=== PATIENT | male | born 1960 | race Caucasian/White ===

== ENCOUNTER 2023-03-30 15:10 | Outpatient (OUT) | payer SELFPAY | END 2023-03-30 15:11 | disposition home or self-care (01) | LOC: PST 15:11 | PROVIDERS: Visit Provider Surgery | DX: Z01.818 Encounter for other preprocedural examination (principal); Z86.010 Personal history of colon polyps ==

== ENCOUNTER 2023-04-07 07:50 | Day surgery (SDC) | payer SELFPAY ==
--- NOTE | 2023-03-29 14:06 | PC.NURSE ---
Call placed to do PAT phone visit at this time. Patient did not answer and a message was left that we will attempt to call again on another day.
--- NOTE | 2023-04-07 | OP_ITS ---
OPERATION DATE: ??04/07/2023 PREOPERATIVE DIAGNOSIS:? Personal history of colon polyps. POSTOPERATIVE DIAGNOSIS:? 2 mm sigmoid polyp as well as sigmoid diverticulosis. PROCEDURE:?? Colonoscopy to cecum with cold biopsy forceps polypectomy x1. SURGEON:? Joni Gonzalez M.D. ANESTHESIA:? Monitored anesthesia care. ESTIMATED BLOOD LOSS:? Less than 1 mL. INDICATIONS AND CONSENT:? Patient is a 62-year-old male presents for surveillance colonoscopy.? Indications, risks, benefits, alternatives of proceeding with colonoscopy were explained extensively to the patient, including the risks of bleeding, colon perforation or anesthetic complications.? All of his questions were answered.? Informed consent was obtained. PROCEDURE:? Patient brought to the operating room, placed in the left lateral decubitus position.? Monitored anesthesia care was provided.? Rectal exam was performed which showed no masses or blood.? The scope was inserted into the anal canal.? Under direct visualization was advanced.? With the aid of abdominal compression, it was advanced to the cecum where cecal markings were clearly identified.? Upon withdrawal of the scope, mucosal surfaces were carefully examined.? There were no mass lesions or inflammatory changes.? Within the sigmoid colon, there was a 2 mm sessile polyp that was removed with cold biopsy forceps with good hemostasis.? There was moderate sigmoid diverticulosis without inflammatory changes or scarring.? The scope was retroflexed in the anal canal.? There were prominent rectal veins, no significant hemorrhoidal disease.? Scope was then withdrawn.? Patient tolerated procedure well, was sent to recovery room in good condition.f/u colonoscopy in 5 years. CC:? Patient?s family physician, Dr. Simon CASAS
[2023-04-07 07:59] VITALS: BP 136/83; PULSE 56; RESP 16; TEMP 36.2; O2SAT 96; BMI 25.8
[2023-04-07] MEDS: LACTATED RINGER'S SOLUTION 1,000 ML 50 ML IV (08:10)
[2023-04-07 09:40] VITALS: BP 86/45; PULSE 60; RESP 20; TEMP 36.2; O2SAT 96
[2023-04-07 09:46] VITALS: BP 124/80; PULSE 66; RESP 20; O2SAT 99
[2023-04-07 10:00] VITALS: BP 135/74; PULSE 56; RESP 16; O2SAT 99
== END 2023-04-07 10:00 | disposition home or self-care (01) ==
PROVIDERS: PCP Family Medicine; Visit Provider Surgery
PROC: (CPT 45380; principal; 2023-04-07 09:00)
DX: K63.5 Polyp of colon (principal); Z86.010 Personal history of colon polyps; K57.30 Diverticulosis of large intestine without perforation or abscess without bleeding; E66.3 Overweight; Z68.27 Body mass index [BMI] 27.0-27.9, adult
CPT/HCPCS: 45380; 88305; J2704

== ENCOUNTER 2025-04-04 09:14 | Outpatient (OUT) | payer SELFPAY ==
--- NOTE | 2025-04-04 09:36 | XR_ITS ---
The [address] [address] Patient Name: JASON ANDERSON MRN: [id number] date: 1960 Sex: M Assigned Patient Location: RAD Current Patient Location: RAD Accession/Order Number: [id number] Exam Date: 04/04/2025 09:30 Report Date: 04/04/2025 09:57 At the request of: JENNIFER JOAQUIN Procedure: XR wrist LT min 3V LEFT WRIST - 3 views CLINICAL HISTORY: Left medial wrist pain for 4 months. No known injury. COMPARISON: None FINDINGS: No focal soft tissue abnormality. 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 Mild degenerative changes involving the carpus particularly involving the CMC joint of the thumb. No bony erosions. XR/XR wrist LT min 3V IMPRESSION: THERE APPEARS BE A TRIQUETRAL FRACTURE BEST SEEN ON THE LATERAL VIEW LIKELY CHRONIC IN NATURE. NO DEFINITE ACUTE BONY PROCESS IS SEEN. CORRELATION WITH AREA OF PAIN IS RECOMMENDED. Impression dictated by: Raymond Wilks Jr., D.O. 04/04/2025 9:57 AM Dictation Location: [place] [address] Electronically authenticated by: [id number] Y Date: 04/04/2025 09:57
== END 2025-04-04 09:15 | disposition home or self-care (01) ==
LOC: RAD 09:15
PROVIDERS: PCP Nurse Practitioner; Visit Provider Nurse Practitioner
DX: M25.532 Pain in left wrist (principal); E66.3 Overweight; Z78.9 Other specified health status; Z68.26 Body mass index [BMI] 26.0-26.9, adult
CPT/HCPCS: 73110